=== PATIENT | male | born 1990 | race Caucasian/White ===

== ENCOUNTER 2018-10-13 08:33 | Emergency (ER) | payer BC ==
[~2018-10-13] VITALS: Ht 193 cm; Wt 73.0 kg
--- NOTE | 2018-10-13 09:25 | NUR ---
PT TO CT
--- NOTE | 2018-10-13 09:41 | NUR ---
PT BACK FROM CT
--- NOTE | 2018-10-13 09:45 | NUR ---
BRENDA WATSON AT BEDSIDE
[2018-10-13] MEDS ORDERED: HYDROcodone/acetaminophen 5mg/325mg tablet PO ONE (10:05)
[2018-10-13] MEDS ORDERED: HYDR-3965 PO (10:06)
[2018-10-13] MEDS ORDERED: AMOX-580 PO (10:35)
[2018-10-13 10:54] VITALS: BP 144/116
[2018-10-13 11:15] LABS: PHENYTOIN (DILANTIN) 28.9 UG/ML (10.0-20.0)
[2018-10-13 11:16] LABS: CARBAMAZEPINE (TEGRETOL) 8.1 UG/ML (4.0-12.0)
== END 2018-10-13 10:56 | disposition home or self-care (01) ==
LOC: ER 08:34
DX: S02.31XA Fracture of orbital floor, right side, initial encounter for closed fracture (principal); S05.11XA Contusion of eyeball and orbital tissues, right eye, initial encounter; G40.909 Epilepsy, unspecified, not intractable, without status epilepticus; Z79.2 Long term (current) use of antibiotics; Z79.899 Other long term (current) drug therapy; W18.39XA Other fall on same level, initial encounter; Y93.89 Activity, other specified; Y92.89 Other specified places as the place of occurrence of the external cause; Y99.8 Other external cause status
CPT/HCPCS: 36415; 70450; 80156; 80185; 99284

== ENCOUNTER 2023-03-29 09:28 | Emergency (ER) | payer BC ==
[~2023-03-29] VITALS: Ht 190.5 cm; Wt 70.7 kg
[2023-03-29 09:35] VITALS: TEMP 97.7
[2023-03-29] MEDS ORDERED: LIDOCAINE 1%/EPI 1:100,000 inj. 10 ML multi-dose vial IJ ONE (09:45)
[2023-03-29 09:58] VITALS: BP 115/85; PULSE 80; O2SAT 99
[2023-03-29] MEDS ORDERED: ondansetron 4mg rapidly disintigrating tab PO ONE (10:05)
[2023-03-29 11:01] VITALS: RESP 16
== END 2023-03-29 11:08 | disposition home or self-care (01) ==
LOC: ER 09:28
DX: S01.01XA Laceration without foreign body of scalp, initial encounter (principal); S09.90XA Unspecified injury of head, initial encounter; G40.909 Epilepsy, unspecified, not intractable, without status epilepticus; Z90.89 Acquired absence of other organs; Z72.89 Other problems related to lifestyle; W22.8XXA Striking against or struck by other objects, initial encounter; Y93.89 Activity, other specified; Y92.89 Other specified places as the place of occurrence of the external cause; Y99.8 Other external cause status
CPT/HCPCS: 12002; 70450; 99284; A6449

== ENCOUNTER 2024-02-03 10:07 | Outpatient (CLI) | payer BC ==
[2024-02-03] MEDS ORDERED: iohexol 350MG/ML 100ml bottle IV ONE (10:27)
== END 2024-02-03 23:59 | disposition home or self-care (01) ==
LOC: RAD 10:07
PROVIDERS: ATTEND Student in an Organized Health Care Education/Training Program
DX: R91.1 Solitary pulmonary nodule (principal)
CPT/HCPCS: 71275; Q9967